=== PATIENT | female | born 1950 | race Caucasian/White ===

== ENCOUNTER 2016-10-31 14:02 | Emergency (ER) | payer BC, MEDICARE ==
[~2016-10-31] VITALS: Ht 167.6 cm; Wt 80.0 kg
[~2016-10-31 14:02] MED LIST: ATEN1TAB73 PO; ATOR10 PO
--- NOTE | 2016-10-31 14:52 | PD ---
HPI Chief Complaint: Chest Pain Time Seen by Provider: 14:50 Travel History International Travel<30 days: Yes ([facility], [facility], [facility]) Contact w/Intl Traveler<30days: Yes Name of Country Traveled to: [facility], [facility], [facility] Traveled to known affect area: No Allergies-Medications (Allergen,Severity, Reaction): Coded Allergies: Benadryl (Verified Allergy, Severe, 10/31/16) Penicillin (Verified Allergy, Severe, 10/31/16) Sulfa (Verified Allergy, Severe, 10/31/16) Reported Meds & Prescriptions Reported Meds & Active Scripts Active Reported Glucosamine-Chondroitin 500-400 Mg Cap 1 Cap PO DAILY Atorvastatin (Atorvastatin Calcium) 40 Mg Tab 40 Mg PO DAILY Atenolol 25 Mg Tab 25 Mg PO DAILY Omeprazole 20 Mg Tab 20 Mg PO DAILY Data Data Last Documented VS Vital Signs Date Time Temp Pulse Resp B/P Pulse Ox O2 Delivery O2 Flow Rate FiO2 10/31/16 14:53 76 16 129/66 98 Room Air Orders Electrocardiogram (10/31/16 ) Complete Blood Count With Diff (10/31/16 14:32) Basic Metabolic Panel (Bmp) (10/31/16 14:32) Ckmb (Isoenzyme) Profile (10/31/16 14:32) Troponin I (10/31/16 14:32) Chest, Single Ap (10/31/16 14:32) Labs Laboratory Tests Test 10/31/16 14:37 White Blood Count 4.9 TH/MM3 Red Blood Count 4.12 MIL/MM3 Hemoglobin 12.8 GM/DL Hematocrit 38.1 % Mean Corpuscular Volume 92.5 FL Mean Corpuscular Hemoglobin 31.0 PG Mean Corpuscular Hemoglobin 33.5 % Concent Red Cell Distribution Width 13.6 % Platelet Count 242 TH/MM3 Mean Platelet Volume 8.1 FL Neutrophils (%) (Auto) 38.3 % Lymphocytes (%) (Auto) 41.1 % Monocytes (%) (Auto) 16.1 % Eosinophils (%) (Auto) 3.9 % Basophils (%) (Auto) 0.6 % Neutrophils # (Auto) 1.9 TH/MM3 Lymphocytes # (Auto) 2.0 TH/MM3 Monocytes # (Auto) 0.8 TH/MM3 Eosinophils # (Auto) 0.2 TH/MM3 Basophils # (Auto) 0.0 TH/MM3 CBC Comment DIFF FINAL Differential Comment Sodium Level 141 MEQ/L Potassium Level 4.1 MEQ/L Chloride Level 105 MEQ/L Carbon Dioxide Level 30.5 MEQ/L Anion Gap 6 MEQ/L Blood Urea Nitrogen 16 MG/DL Creatinine 0.87 MG/DL Estimat Glomerular Filtration 65 ML/MIN Rate Random Glucose 124 MG/DL Calcium Level 8.7 MG/DL Total Creatine Kinase 80 U/L Troponin I LESS THAN 0.02 NG/ML MDM Medical Decision Making Medical Screen Exam Complete: Yes Emergency Medical Condition: Yes Interpretation(s) EKG shows normal sinus rhythm and normal axis normal R-wave progression. No concerning ST changes intervals within normal limits. This normal EKG. Franklin Buckley MD Oct 31, 2016 14:51
[2016-10-31 14:53] VITALS: BP 129/66; PULSE 76; RESP 16; O2SAT 98
[2016-10-31 15:00] LABS: AUTOMATED NEUTROPHIL # 1.9 TH/MM3 (1.8-7.7); BASOPHIL % 0.6 % (0.0-2.0); EOSINOPHIL # 0.2 TH/MM3 (0-0.4); EOSINOPHIL % 3.9 % (0.0-4.0); HEMATOCRIT 38.1 % (35.0-46.0); HEMO FLAGS DIFF FINAL; LYMPH % 41.1 % (9.0-44.0); MEAN CELL VOLUME 92.5 FL (80.0-100.0); MEAN CORPUSCULAR HGB CONC 33.5 % (32.0-36.0); MONO % 16.1 % (0.0-8.0); NEUT % 38.3 % (16.0-70.0); PLATELET COUNT 242 TH/MM3 (150-450); RED BLOOD COUNT 4.12 MIL/MM3 (4.00-5.30); RED CELL DISTRIBUTION WIDTH 13.6 % (11.6-17.2); WHITE BLOOD COUNT 4.9 TH/MM3 (4.0-11.0)
[2016-10-31] MEDS ORDERED: GLUC1CAP14 PO (15:00)
[2016-10-31] MEDS ORDERED: OMEP20TA PO (15:00)
[2016-10-31] MEDS ORDERED: ATEN25TA PO (15:00)
[2016-10-31] MEDS ORDERED: ATOR40TA16 PO (15:00)
--- NOTE | 2016-10-31 15:23 | PD ---
HPI Chief Complaint: Chest Pain Time Seen by Provider: 15:21 Travel History International Travel<30 days: Yes ([facility], [facility], [facility]) Contact w/Intl Traveler<30days: Yes Name of Country Traveled to: [place], [place] [facility], [place] Traveled to known affect area: No History of Present Illness HPI 66-year-old female with PMH of HLD, HTN, GERD presents to the ED for evaluation of 30 minute history of left-sided chest pain. Onset while at rest, rated 5 maximally, currently rated 3/10. No accompanying shortness of breath, palpitations, nausea, vomiting or diaphoresis. Patient states this is not like episodes of heartburn. Endorses family history of VT in her father and his brothers at approximately age 60-65. She denies history of smoking, diabetes. Patient states she underwent a stress test one year ago with Dr. Garner which was "completely normal." PFSH Past Medical History High Cholesterol: Yes GERD: Yes Hypertension: Yes Triglycerides - High: Yes Influenza Vaccination: No ?: Not Past Surgical History Surgical History: No Previous Surgery Family History Family Myocardial Infarction: Yes Social History Alcohol Use: No Tobacco Use: No Substance Use: No Allergies-Medications (Allergen,Severity, Reaction): Coded Allergies: Benadryl (Verified Allergy, Severe, 10/31/16) Penicillin (Verified Allergy, Severe, 10/31/16) Sulfa (Verified Allergy, Severe, 10/31/16) Reported Meds & Prescriptions Reported Meds & Active Scripts Active Reported Glucosamine-Chondroitin 500-400 Mg Cap 1 Cap PO DAILY Atorvastatin (Atorvastatin Calcium) 40 Mg Tab 40 Mg PO DAILY Atenolol 25 Mg Tab 25 Mg PO DAILY Omeprazole 20 Mg Tab 20 Mg PO DAILY Review of Systems Except as stated in HPI: all other systems reviewed are Neg Physical Exam Narrative GENERAL: Well-nourished, well-developed white female in no acute distress. SKIN: Warm, deeply tanned and dry. HEAD: Normocephalic. EYES: No scleral icterus. No injection or drainage. NECK: Supple, trachea midline. No JVD or lymphadenopathy. CARDIOVASCULAR: Regular rate and rhythm without murmurs, gallops, or rubs. 2+ DP and radial pulses bilaterally. RESPIRATORY: Breath sounds clear and equal bilaterally. No accessory muscle use. GASTROINTESTINAL: Abdomen soft, non-tender, nondistended. Active bowel sounds MUSCULOSKELETAL: No cyanosis, or edema. Patient is ambulatory and moves extremities spontaneously. BACK: Nontender without obvious deformity. No CVA tenderness. Data Data Last Documented VS Vital Signs Date Time Temp Pulse Resp B/P Pulse Ox O2 Delivery O2 Flow Rate FiO2 10/31/16 14:53 76 16 129/66 98 Room Air Orders Electrocardiogram (10/31/16 ) Complete Blood Count With Diff (10/31/16 14:32) Basic Metabolic Panel (Bmp) (10/31/16 14:32) Ckmb (Isoenzyme) Profile (10/31/16 14:32) Troponin I (10/31/16 14:32) Chest, Single Ap (10/31/16 14:32) Labs Laboratory Tests Test 10/31/16 14:37 White Blood Count 4.9 TH/MM3 Red Blood Count 4.12 MIL/MM3 Hemoglobin 12.8 GM/DL Hematocrit 38.1 % Mean Corpuscular Volume 92.5 FL Mean Corpuscular Hemoglobin 31.0 PG Mean Corpuscular Hemoglobin 33.5 % Concent Red Cell Distribution Width 13.6 % Platelet Count 242 TH/MM3 Mean Platelet Volume 8.1 FL Neutrophils (%) (Auto) 38.3 % Lymphocytes (%) (Auto) 41.1 % Monocytes (%) (Auto) 16.1 % Eosinophils (%) (Auto) 3.9 % Basophils (%) (Auto) 0.6 % Neutrophils # (Auto) 1.9 TH/MM3 Lymphocytes # (Auto) 2.0 TH/MM3 Monocytes # (Auto) 0.8 TH/MM3 Eosinophils # (Auto) 0.2 TH/MM3 Basophils # (Auto) 0.0 TH/MM3 CBC Comment DIFF FINAL Differential Comment Sodium Level 141 MEQ/L Potassium Level 4.1 MEQ/L Chloride Level 105 MEQ/L Carbon Dioxide Level 30.5 MEQ/L Anion Gap 6 MEQ/L Blood Urea Nitrogen 16 MG/DL Creatinine 0.87 MG/DL Estimat Glomerular Filtration 65 ML/MIN Rate Random Glucose 124 MG/DL Calcium Level 8.7 MG/DL Total Creatine Kinase 80 U/L Troponin I LESS THAN 0.02 NG/ML MDM Medical Decision Making Medical Screen Exam Complete: Yes Emergency Medical Condition: Yes Interpretation(s) EKG rate 73, sinus rhythm. Normal intervals. Normal axis. No ischemic changes. Reviewed by Dr. Buckley. Differential Diagnosis GERD versus Chest pain versus angina versus ACS versus other Narrative Course 66-year-old female with PMH of HLD, HTN, GERD presents to the ED for evaluation of 30 minute history of left-sided chest pain. Onset while at rest, rated 5 maximally, currently rated 3/10. No accompanying shortness of breath, palpitations, nausea, vomiting or diaphoresis. Endorses family history of VT in multiple paternal relatives. She denies history of smoking, diabetes. Patient states she underwent a stress test one year ago with Dr. Garner which was "completely normal." Vitals reviewed. Physical exam reveals a nontoxic-appearing white female in no acute distress. Chest is clear to auscultation bilaterally. Abdomen soft and nontender. Equal distal pulses. No lower extremity edema. CBC: Unremarkable. CMP: Unremarkable. Cardiac enzymes: Negative CXR: No acute pulmonary disease per radiology review. EKG as above. I discussed the results of the workup with the patient. I recommended that she be admitted to the chest pain center for serial cardiac enzymes and EKGs, possible stress testing. The patient states that she does not want to be admitted for 24-hour observation as her insurance will not pay. She plans to have outpatient cardiac enzymes ordered by her primary care physician. I discussed the risks of leaving, including life-threatening cardiac event and possible . The patient indicated understanding of these risks, but chose to leave AMA. Diagnosis Primary Impression: Chest pain Qualified Code: R07.9 - Chest pain, unspecified type Disposition: 07 AGAINST MEDICAL ADVICE Susie Leiva Oct 31, 2016 15:22
--- NOTE | 2016-10-31 15:25 | RADRPT ---
EXAM DATE/TIME: 10/31/2016 15:10 [facility] COMPARISON: No previous studies available for comparison. INDICATIONS : Chest pain. MEDICAL HISTORY : None. SURGICAL HISTORY : None. ENCOUNTER: Initial ACUITY: 1 day PAIN SCORE: 3/10 LOCATION: Left lower chest FINDINGS: A single view of the chest demonstrates the lungs to be symmetrically aerated without evidence of mas s, infiltrate or effusion. The cardiomediastinal contours are unremarkable. Osseous structures are intact. CONCLUSION: No acute disease. David Leigh MD on October 31, 2016 at 15:23 Board Certified Radiologist. This report was verified electronically.
[2016-10-31 15:27] LABS: BLOOD UREA NITROGEN 16 MG/DL (7-18)
[2016-10-31 15:28] LABS: ANION GAP 6 MEQ/L (5-15); BICARBONATE 30.5 MEQ/L (21.0-32.0); CHLORIDE 105 MEQ/L (98-107); GLOMERULAR FILTRATION RATE 65 ML/MIN (>89); POTASSIUM 4.1 MEQ/L (3.5-5.1); SODIUM (NA) 141 MEQ/L (136-145)
[2016-10-31 15:40] LABS: CREATINE KINASE 80 U/L (26-192)
--- NOTE | 2016-11-01 16:35 | EKG ---
Date Performed: 10/31/2016 Time Performed: 14:37:21 PTAGE: 66 years EKG: Sinus rhythm NORMAL ECG NO PREVIOUS TRACING DOCTOR: Feroz Pompa Interpretating Date/Time 11/01/2016 16:34:21
== END 2016-10-31 17:19 | disposition left against medical advice (07) ==
LOC: NEPA 14:02
DX: R07.9 Chest pain, unspecified (principal); K21.9 Gastro-esophageal reflux disease without esophagitis; I10 Essential (primary) hypertension; E78.00 Pure hypercholesterolemia, unspecified; Z82.49 Family history of ischemic heart disease and other diseases of the circulatory system
CPT/HCPCS: 71010; 80048; 82550; 84484; 85025; 93005